=== PATIENT | female | born 1995 | race Two or more races ===

== ENCOUNTER 2024-09-23 08:48 | Outpatient (CLI) | payer OTHER | END 2024-09-23 08:49 | disposition home or self-care (01) | LOC: PRENATAL 08:48 | PROVIDERS: ATTEND Obstetrics & Gynecology Maternal & Fetal Medicine | DX: O36.80X0 Pregnancy with inconclusive fetal viability, not applicable or unspecified (principal); Z36.82 Encounter for antenatal screening for nuchal translucency; Z36.9 Encounter for antenatal screening, unspecified; Z14.8 Genetic carrier of other disease; O34.219 Maternal care for unspecified type scar from previous cesarean delivery; O36.1999 Maternal care for other isoimmunization, unspecified trimester, other fetus; O99.019 Anemia complicating pregnancy, unspecified trimester; Z3A.13 13 weeks gestation of pregnancy ==

== ENCOUNTER 2024-11-08 11:58 | Outpatient (CLI) | payer OTHER | END 2024-11-08 11:59 | disposition home or self-care (01) | LOC: PRENATAL 11:58 | PROVIDERS: ATTEND Obstetrics & Gynecology Maternal & Fetal Medicine | DX: O44.00 Complete placenta previa NOS or without hemorrhage, unspecified trimester (principal); O34.219 Maternal care for unspecified type scar from previous cesarean delivery; O36.1999 Maternal care for other isoimmunization, unspecified trimester, other fetus; O99.019 Anemia complicating pregnancy, unspecified trimester; Z3A.20 20 weeks gestation of pregnancy ==

== ENCOUNTER 2025-01-31 10:34 | Outpatient (CLI) | payer OTHER | END 2025-01-31 10:36 | disposition home or self-care (01) | LOC: PRENATAL 10:34 | PROVIDERS: ATTEND Obstetrics & Gynecology Maternal & Fetal Medicine | DX: O26.849 Uterine size-date discrepancy, unspecified trimester (principal); O36.8199 Decreased fetal movements, unspecified trimester, other fetus; O34.219 Maternal care for unspecified type scar from previous cesarean delivery; O36.1999 Maternal care for other isoimmunization, unspecified trimester, other fetus; O99.019 Anemia complicating pregnancy, unspecified trimester; Z3A.32 32 weeks gestation of pregnancy ==

== ENCOUNTER 2025-03-14 08:45 | Inpatient (IN) | payer OTHER ==
[~2025-03-14] VITALS: Ht 157.5 cm; Wt 68.0 kg
[2025-03-14 11:04] LABS: URINE APPEARANCE Clear; URINE BILIRRUBIN Negative (NEGATIVE); URINE BLOOD Negative; URINE COLOR Yellow; URINE GLUCOSE Negative (NEGATIVE); URINE KETONE Negative (NEGATIVE); URINE LEUKOCYTE Large; URINE NITRATE Negative; URINE PROTEIN 30 (NEGATIVE); URINE UROBILINOGEN 1.0 E.U./dl
[2025-03-14 11:08] LABS: URINE BACTERIA 2868.0 uL (0.0-1933); URINE EPITHELIAL CELLS 29.0 uL (0.0-38.8); URINE RBC 10.4 uL (0.0-20.8); URINE WBC 525.0 uL (0.0-23.2)
[2025-03-14 11:09] LABS: BASO % 0.4 % (0.1-1.2); EOS # 0.03 (0.04-0.54); EOS % 0.6 % (0.7-7.0); LYMPH # 1.32 (1.18-3.74); LYMPH % 27.2 % (19.3-53.1); MEAN PLATELET VOLUME 11.20 fl (9.4-12.4); MONO # 0.47 (0.24-0.82); MONO % 9.7 % (4.7-12.5); NEUT # 2.99 (1.56-6.13); NEUT % 61.5 % (34.0-71.1); RED CELL DISTRIBUTION WIDTH 15.9 % (11.6-14.4)
[2025-03-14 11:31] LABS: ALT/SGPT 23.0 U/L (12-78); AST/SGOT 18.0 U/L (15-37); BILIRUBIN TOTAL 0.31 mg/dL (0.3-1.2); BUN CREA RATIO 16.0 (7.0-25.0); CREATININE SERUM 0.74 mg/dL (0.55-1.02); GFR 91.54; GLOBULINA 4.0 G/DL (2.4-3.5); GLUCOSE FASTING 66.0 mg/dL (65-100); INR < 0.93; OSMOLALITY SERUM 277.0 MOSM/KG (275-295)
[2025-03-14 11:48] LABS: URINE CAST 0.58 uL (0.0-1.40)
[2025-03-14 11:49] LABS: RH NEGATIVE; URINE CRYSTALS FEW /HPF; URINE YEAST FEW /hpf
[2025-03-14] MEDS ORDERED: B12 ACTIVE1000 MCG PO (14:13)
[2025-03-14] MEDS ORDERED: PRENATABS RX T1 EACH PO (14:13)
[2025-03-14] MEDS ORDERED: IRON325 MG PO (14:13)
[2025-03-14] MEDS ORDERED: VIT C-ROSE HIP500 MG PO (14:14)
[2025-03-20 12:19] VITALS: BP 113/72
[2025-03-20] MEDS ORDERED: ERYTHROMYCIN BASE OPHT 1GM EACH TUBE OP ONE (14:00)
[2025-03-20] MEDS ORDERED: CEFAZOLIN SODIUM 1,000 MG VIAL IV ONE (14:00)
[2025-03-20] MEDS ORDERED: OXYTOCIN 20 UNITS/1000ML RL PIGGYBAG IV ONE (14:00)
[2025-03-20] MEDS ORDERED: ONDANSETRON HCL 2 MG/ML VIAL IV PRN (15:30)
[2025-03-20] MEDS ORDERED: MORPHINE SULFATE 4 MG/ML CARTRIDGE IV PRN (15:30)
[2025-03-20] MEDS ORDERED: MORPHINE SULFATE 4 MG/ML VIAL IV ONE ×3 (16:45→19:40)
[2025-03-20] MEDS ORDERED: DOCUSATE SODIUM 100MG CAP PO SCH (17:00)
[2025-03-20] MEDS ORDERED: KETOROLAC TROMETHAMINE 30 MG VIAL IV SCH (18:00)
[2025-03-20] MEDS ORDERED: SIMETHICONE 125 MG CAPSULE PO SCH (18:00)
[2025-03-20] MEDS ORDERED: METOCLOPRAMIDE HCL 5 MG/ML VIAL IV NR (18:15)
[2025-03-20] MEDS ORDERED: FF) RHO(D) IMMUNE GLOBULIN (POM) IM NR (18:15)
[2025-03-20] MEDS ORDERED: OXYTOCIN 1,000 ML IV SCH (18:15)
[2025-03-20] MEDS ORDERED: RINGERS SOLUTION,LACTATED 1,000 ML IV SCH (18:15)
[2025-03-20 20:46] VITALS: BP 118/75
[2025-03-21 01:00] VITALS: BP 110/65
[2025-03-21 06:00] VITALS: BP 103/64
[2025-03-21] MEDS ORDERED: ACETAMINOPHEN 325 MG TABLET PO SCH (06:00)
[2025-03-21 06:01] LABS: BASO % 0.1 % (0.1-1.2); EOS # 0.01 (0.04-0.54); EOS % 0.1 % (0.7-7.0); LYMPH # 1.14 (1.18-3.74); LYMPH % 13.7 % (19.3-53.1); MEAN PLATELET VOLUME 11.00 fl (9.4-12.4); MONO # 0.49 (0.24-0.82); MONO % 5.9 % (4.7-12.5); NEUT # 6.64 (1.56-6.13); NEUT % 79.8 % (34.0-71.1); RED CELL DISTRIBUTION WIDTH 15.0 % (11.6-14.4)
[2025-03-21 08:36] VITALS: BP 112/64
[2025-03-21 13:33] VITALS: BP 113/69
[2025-03-21] MEDS ORDERED: IRON FUM,PS/FOLIC/BCOMP,C NO.9 1 CAP CAPSULE PO SCH (16:09)
[2025-03-21 16:22] VITALS: BP 114/75
[2025-03-21 16:49] LABS: BASO % 0.1 % (0.1-1.2); EOS # 0.01 (0.04-0.54); EOS % 0.1 % (0.7-7.0); LYMPH # 1.29 (1.18-3.74); LYMPH % 14.3 % (19.3-53.1); MEAN PLATELET VOLUME 11.40 fl (9.4-12.4); MONO # 0.59 (0.24-0.82); MONO % 6.5 % (4.7-12.5); NEUT # 7.12 (1.56-6.13); NEUT % 78.8 % (34.0-71.1); RED CELL DISTRIBUTION WIDTH 15.2 % (11.6-14.4)
[2025-03-22] VITALS: BP 106/69
[2025-03-22 08:56] VITALS: BP 107/63
== END 2025-03-22 13:09 | disposition home or self-care (01) | DRG 785 ==
LOC: OB/GYN 03-20 07:00 → O/R 03-20 13:20 → OB/GYN 03-20 18:06
PROVIDERS: Specialist; ADMIT Obstetrics & Gynecology; ATTEND Obstetrics & Gynecology
PROC: 0UB70ZZ Excision of Bilateral Fallopian Tubes, Open Approach (ICD-10-PCS; 2025-03-20)
PROC: 4A1HXCZ Monitoring of Products of Conception, Cardiac Rate, External Approach (ICD-10-PCS; 2025-03-20)
PROC: 10D00Z1 Extraction of Products of Conception, Low, Open Approach (ICD-10-PCS; principal; 2025-03-20 07:00)
DX: O34.211 Maternal care for low transverse scar from previous cesarean delivery (principal); Z30.2 Encounter for sterilization; Z3A.38 38 weeks gestation of pregnancy; Z37.0 Single live birth

== ENCOUNTER 2025-03-28 21:16 | Emergency (ER) | payer OTHER ==
[~2025-03-28] VITALS: Ht 154.9 cm; Wt 58.1 kg
[~2025-03-28 21:16] MED LIST: B12 ACTIVE1000 MCG PO; IRON325 MG PO; PRENATABS RX T1 EACH PO; VIT C-ROSE HIP500 MG PO
[2025-03-29] MEDS ORDERED: KETOROLAC TROMETHAMINE 30 MG VIAL IV STA (00:39)
[2025-03-29] MEDS ORDERED: CEFTRIAXONE SODIUM 1,000 MG VIAL IV STA (00:39)
[2025-03-29 01:48] LABS: BASO % 0.2 % (0.1-1.2); EOS # 0.16 (0.04-0.54); EOS % 2.9 % (0.7-7.0); LYMPH # 1.69 (1.18-3.74); LYMPH % 30.9 % (19.3-53.1); MEAN PLATELET VOLUME 9.70 fl (9.4-12.4); MONO # 0.43 (0.24-0.82); MONO % 7.9 % (4.7-12.5); NEUT # 3.16 (1.56-6.13); NEUT % 57.7 % (34.0-71.1); RED CELL DISTRIBUTION WIDTH 14.5 % (11.6-14.4)
[2025-03-29 02:05] LABS: BUN CREA RATIO 23.0 (7.0-25.0); CREATININE SERUM 0.74 mg/dL (0.55-1.02); GFR 91.54; GLUCOSE FASTING 88.0 mg/dL (65-100); OSMOLALITY SERUM 286.0 MOSM/KG (275-295)
[2025-03-29] MEDS ORDERED: SULFAMETHOXAZO1 EACH PO (04:54)
== END 2025-03-29 05:03 ==
LOC: ER 21:16
PROVIDERS: General Practice
DX: O90.9 Complication of the puerperium, unspecified (principal)